=== PATIENT | male | born 1995 | race Caucasian/White ===

== ENCOUNTER 2018-04-16 12:48 | Emergency (ER) | payer OTHER ==
[~2018-04-16] VITALS: Ht 180.3 cm; Wt 86.2 kg
[~2018-04-16 12:48] MED LIST: PRILOSEC 20 MG20 MG PO; PROTONIX 20 MG20 M1 PO
[2018-04-16] MEDS ORDERED: AMOXICILLIN 50500 MG PO (12:51)
[2018-04-16 15:36] LABS: HEMATOCRIT 43.1 % (42.0-52.0); HEMOGLOBIN 14.9 gm/dL (14.0-18.0); MCH 31.5 pg (26.0-34.0); MCHC 34.5 g/dL (28.0-37.0); MCV 91.4 fL (80.0-100.0); MPV 8.9 fl. (7.2-11.1); NUCLEATED RBCS 0 /100WBC; PLATELET COUNT* 206 thou/uL (150-400); RBC 4.71 mil/uL (4.50-6.00); RDW-CV 12.9 % (10.5-14.5); WBC 7.5 thou/uL (4.0-11.0)
[2018-04-16 15:48] LABS: ANION GAP 7 mmol/L (7-16); BUN 11 mg/dL (7-18); CALCIUM 8.8 mg/dL (8.5-10.1); CHLORIDE 103 mmol/L (98-107); CO2 31 mmol/L (21-32); CREATININE 0.8 mg/dL (0.6-1.3); GLUCOSE 83 mg/dL (70-99); POTASSIUM 3.7 mmol/L (3.5-5.1); SODIUM 141 mmol/L (136-145)
[2018-04-16 15:54] LABS: ALKALINE PHOSPHATASE 63 U/L (46-116); SGOT 27 U/L (15-37); SGPT 64 U/L (30-65); TOTAL BILIRUBIN 0.3 mg/dL (<0.1-1.0); TOTAL PROTEIN 7.1 g/dL (6.4-8.2); TROPONIN-I LEVEL <0.06 ng/mL (<0.06)
[2018-04-16 16:01] LABS: ABSOLUTE EOSINOPHILS 0.8 thou/uL (0.0-0.7); ABSOLUTE LYMPHOCYTES 2.1 thou/uL (0.8-5.3); ABSOLUTE MONOCYTES 0.3 thou/uL (0.0-1.2); ABSOLUTE NEUTROPHILS 4.3 thou/uL (1.6-8.1); PLATELET ESTIMATE ADEQUATE; TOXIC GRANULATION 2+
--- NOTE | 2018-04-16 16:50 | EKG ---
[place] [address] ELECTROCARDIOGRAM REPORT Name: BARRETT CUTLER Room: [facility]#: [id number] Admission: 04/16/18 Attend Phys: Discharge: Date of : [birth year] Report #: [id number] THIS REPORT FOR: //name// [facility] ED Test Date: 2018-04-16 Test Time: 12:52:19 Pat Name: BARRETT CUTLER Department: Room: Gender: [employer] Operator: [facility] : 1995 Requested By: Ileana Rascon Order Number: [id number] MD: Eliu Bray Measurements Intervals [place] Rate: 72 P: 59 SD: 126 QRS: 73 QRSD: 100 T: 44 QT: 366 QTc: 401 Interpretive Statements Sinus rhythm No previous ECG available for comparison Electronically Signed On 04-16-2018 16:50:40 WHIPPED TOPPING MIXER by Eliu Bray [email or web address] <ELECTRONICALLY SIGNED> By: Eliu Bray MD, [facility] 04/16/18 1650 1252 1252 Eliu Bray MD, FACC /EPI
[2018-04-16 18:51] LABS: AMP/METHAMP Negative (Negative); BARBITURATES Negative (Negative); BENZODIAZEPINES Negative (Negative); COCAINE Negative (Negative); METHADONE Negative (Negative); OPIATES POSITIVE (Negative); PCP Negative (Negative); THC POSITIVE (Negative)
[2018-04-16 19:29] VITALS: BP 142/88
== END 2018-04-16 19:30 | disposition home or self-care (01) ==
LOC: M.ERS 12:48
PROVIDERS: Nurse Practitioner Family
DX: R07.89 Other chest pain (principal); R00.1 Bradycardia, unspecified; Z79.899 Other long term (current) drug therapy

== ENCOUNTER → 2019-08-24 | Outpatient (CLI) | payer OTHER ==
[~2019-08-24] MED LIST changes: +AMOXICILLIN 50500 MG PO
== END ==
LOC: M.RAD 10:28
DX: M25.471 Effusion, right ankle (principal)

== ENCOUNTER → 2019-08-25 | Outpatient (CLI) | payer OTHER | LOC: M.MRI 16:46 | DX: S96.911A Strain of unspecified muscle and tendon at ankle and foot level, right foot, initial encounter (principal); M77.8 Other enthesopathies, not elsewhere classified; X58.XXXA Exposure to other specified factors, initial encounter; Y93.89 Activity, other specified; Y92.89 Other specified places as the place of occurrence of the external cause; Y99.8 Other external cause status ==